=== PATIENT | female | born 1990 | race African-American/Black ===

== ENCOUNTER 2017-04-01 19:31 | Emergency (ER) | payer OTHER ==
[~2017-04-01] VITALS: Ht 154.9 cm; Wt 61.2 kg
[~2017-04-01 19:31] MED LIST: NAPROSYN500 MG OR; NO HOME MEDS; PRENATAL1 TA1 PO
[2017-04-01] MEDS ORDERED: AMOXICILLIN500 MG PO (20:04)
[2017-04-01 20:21] LABS: INFLUENZA A NONE DETECTED (NONE DETECT); INFLUENZA B NONE DETECTED (NONE DETECT)
[2017-04-01 20:25] VITALS: BP 108/68
== END 2017-04-01 20:29 | disposition home or self-care (01) | DRG 153 ==
LOC: ED 19:31
PROVIDERS: Emergency Medicine
DX: J02.9 Acute pharyngitis, unspecified (principal); M19.90 Unspecified osteoarthritis, unspecified site

== ENCOUNTER 2019-01-14 21:28 | Emergency (ER) | payer BC ==
[~2019-01-14] VITALS: Ht 154.9 cm; Wt 72.7 kg
[~2019-01-14 21:28] MED LIST changes: +AMOXICILLIN500 MG PO
[2019-01-14 22:32] LABS: URINE BILIRUBIN - DIPSTICK NEGATIVE (NEGATIVE); URINE BLOOD DIPSTICK LARGE (NEGATIVE); URINE COLOR YELLOW; URINE GLUCOSE - DIPSTICK NEGATIVE (NEGATIVE); URINE KETONE TRACE mg/dL (NEGATIVE); URINE NITRITE - DIPSTICK NEGATIVE (Negative); URINE PH 7.5 (4.5-8.0); URINE PROTEIN - DIPSTICK NEGATIVE (NEG-TRACE); URINE UROBILINOGEN - DIPSTICK 0.2 E.U./dL (0.2)
[2019-01-14 23:05] LABS: URINE LEUK ESTERASE NEGATIVE (NEGATIVE)
[2019-01-14 23:06] LABS: URINE BACTERIA FEW hpf; URINE EPITHELIAL CELLS FEW EPI/hpf (0-FEW); URINE RBC >100 RBC/hpf (0-5)
[2019-01-14] MEDS ORDERED: AMOXICILLIN500 MG PO ×2 (23:11→23:55)
[2019-01-14] MEDS ORDERED: ZOFRAN4 MG/TAB PO ×2 (23:11→23:55)
[2019-01-14 23:55] VITALS: BP 119/65
== END 2019-01-14 23:55 | disposition home or self-care (01) | DRG 153 ==
LOC: ED 21:28
DX: J02.0 Streptococcal pharyngitis (principal); R50.9 Fever, unspecified; R11.2 Nausea with vomiting, unspecified

== ENCOUNTER 2023-06-08 21:45 | Emergency (ER) | payer OTHER ==
[~2023-06-08] VITALS: Ht 154.9 cm; Wt 78.0 kg
[~2023-06-08 21:45] MED LIST changes: +ZOFRAN4 MG/TAB PO
[2023-06-08 23:16] VITALS: BP 110/68
[2023-06-08] MEDS ORDERED: AMOXICILLIN & POT CLAVULANATE 875 MG/TAB PO ONE (23:30)
[2023-06-08] MEDS ORDERED: AMOX/K CLAV875 M1 PO (23:33)
[2023-06-09 00:26] VITALS: BP 110/68
== END 2023-06-09 00:26 | disposition home or self-care (01) | DRG 153 ==
LOC: ED 21:45
DX: J01.90 Acute sinusitis, unspecified (principal); D17.1 Benign lipomatous neoplasm of skin and subcutaneous tissue of trunk